=== PATIENT | male | born 1965 | race Caucasian/White ===

== ENCOUNTER 2021-04-28 20:49 | Emergency (ER) | payer MEDICAID ==
[2021-04-28 20:55] VITALS: BP 127/66
--- NOTE | 2021-04-28 21:02 | ED Physician Documentation ---
PD HPI MALE - Stated complaint Stated Complaint: FEVER/UNABLE TO URINATE - Chief complaint Chief Complaint: UTI - History obtained from History obtained from: Patient - History of Present Illness Timing - onset: Today Timing - details: Abrupt onset, Intermittant Associated symptoms: Dysuria, Urinary frequency, Other (hesitancy (sensation of slow to start urinating despite urge, and then sensation of incomplete voiding() Recently seen: Not recently seen - Additional information Additional information: c/o 1 day of urinary frequency, urge to urinate but small amount output at a time with sensation of incomplete voiding. Tonight developed chills with fever Tmax 102.8. He is COVID vaccinated Review of Systems Constitutional: reports: Fever, Chills Respiratory: reports: Reviewed and negative GI: reports: Reviewed and negative : reports: Dysuria, Frequency, Hesitancy. denies: Discharge Musculoskeletal: denies: Back pain PD PAST MEDICAL HISTORY - Past Medical History Past Medical History: No - Present Medications Home Medications: Ambulatory Orders Medication Instructions Recorded Confirmed Phenazopyridine HCl [Pyridium] 200 mg PO TID PRN #6 tablet 04/28/21 levoFLOXacin [Levofloxacin] 500 mg PO DAILY #10 tablet 04/28/21 - Allergies Allergies/Adverse Reactions: Allergies Allergy/AdvReac Type Severity Reaction Status Date / Time No Known Drug Allergies Allergy Verified 04/28/21 20:55 - Living Situation Living Arrangement: reports: At home PD ED PE NORMAL - Vitals Vital signs reviewed: Yes - General General: Alert and oriented X 3, No acute distress, Well developed/nourished - Abdomen Abdomen: Soft, Non tender - Back Back: No CVA TTP Results - Vitals Vitals: Oxygen O2 Source Room air - Labs Labs: Microbiology 04/28/21 21:00 Urine Culture - Final Urine,Clean Catch Escherichia Coli Laboratory Tests 04/28/21 21:00 Urine Color ORANGE Urine Clarity CLOUDY Urine pH 5.0 Ur Specific Metaline 1.020 Urine Protein Urine Glucose (UA) 250 H Urine Ketones 15 H Urine Occult Blood Urine Nitrite Urine Bilirubin COLOR INTERFERENCE Urine Urobilinogen Ur Leukocyte Esterase Urine RBC 6-10 H Urine WBC >25 H Ur Squamous Epith Cells FEW Squamous Urine Bacteria Many H Ur Microscopic Review INDICATED Urine Culture Comments INDICATED PD MEDICAL DECISION MAKING - ED course Complexity details: reviewed results, re-evaluated patient, considered differential, d/w patient ED course: HPI and UA are suggestive of, and consistent with, UTI. Fever raises concern for bacteremia, pyelonehpritis, although he has no CVA tenderness and has stable vitals and well-appearing in ED. Will treat with rocephin IM, levaquin, and rx for levaquin and pyridium. Departure - Departure Disposition: Home, Self Care Clinical Impression: Urinary tract infection Qualifiers: Urinary tract infection type: acute cystitis Hematuria presence: with hematuria Qualified Code(s): N30.01 - Acute cystitis with hematuria Condition: Good Instructions: ED UTI Cystitis Male Prescriptions: levoFLOXacin [Levofloxacin] 500 mg PO DAILY #10 tablet Phenazopyridine HCl [Pyridium] 200 mg PO TID PRN #6 tablet PRN Reason: dysuria Comments: Follow up with your primary care provider in 2-3 days for reevaluation unless your signs (fever) and symptoms have resolved. Prescriptions for levofloxacin (antibiotic) and pyridium (analgesic for the inflamed bladder) have been electronically submitted to [facility] in [place] Discharge Date/Time: 04/28/21 22:03
[2021-04-28 21:33] LABS: BILIRUBIN,URINE COLOR INTERFERENCE (NEGATIVE); CLARITY,URINE CLOUDY (CLEAR); GLUCOSE, URINE (UA) 250 mg/dL (NEGATIVE); KETONES,URINE (UA) 15 mg/dL (NEGATIVE)
[2021-04-28 21:38] LABS: BACTERIA,URINE Many /HPF (None Seen); SQUAMOUS EPITHELIAL CELL,UR FEW Squamous (<= Few); WBC,URINE >25 /HPF (0-3)
[2021-04-28] MEDS ORDERED: cefTRIAXone 1 GM VIAL IM STA (21:42)
[2021-04-28] MEDS ORDERED: LIDOCAINE 1% 2 ML VIAL MC ONE (21:42)
[2021-04-28] MEDS ORDERED: levoFLOXacin 250 MG TABLET PO STA (21:43)
== END 2021-04-28 22:03 | disposition home or self-care (01) ==
LOC: ED 20:49
DX: N30.01 Acute cystitis with hematuria (principal)
CPT/HCPCS: 81001; 87086; 87181; 96372; 99283; A9270; 81003